=== PATIENT | female | born 1990 ===

== ENCOUNTER → 2024-02-04 | Outpatient (CLI) | payer MEDICAID ==
--- NOTE | 2024-02-08 16:48 | US ---
EXAMINATION TYPE: US thyroid st tissue head/neck DATE OF EXAM: 02/04/2024 COMPARISON: NONE CLINICAL INDICATION: Female, 33 years old with history of E04.1 NONTOXIC SINGLE THYROID NODULE; fatig ue, weight changes, normal labs GLAND SIZE: Right Lobe: 4.4 x 1.7 x 2.0 cm Overall Parenchyma: heterogeneous Left Lobe: 4.0 x 1.2 x 1.4cm Overall Parenchyma: homogeneous Isthmus Thickness: 0.3 cm NODULES RIGHT: # of nodules measured on right: 1 1. 1.9 X 1.5 x 1.3 cm, mid , solid or almost completely solid, isoechoic nodule, which is wider salome n tall, with smooth margins, without echogenic foci. TR 3. Prior size: [employer] LEFT: # of nodules measured on left: 0 ISTHMUS: # of nodules measured in the isthmus: 0 Bilateral neck scanned, no evidence of lymphadenopathy. IMPRESSION: Right thyroid lobe 1.9 cm TR 3 nodule. Follow-up ultrasound in one year is recommended. IMPRESSION:
== END | disposition home or self-care (01) ==
LOC: RADUSWWP 15:31
PROVIDERS: ATTEND Family Medicine
DX: E04.1 Nontoxic single thyroid nodule (principal)
CPT/HCPCS: 76536